=== PATIENT | female | born 1990 | race Two or more races ===

== ENCOUNTER 2018-11-09 18:00 | Observation (INO) | payer SELFPAY ==
[~2018-11-09] VITALS: Ht 165.1 cm; Wt 80.0 kg
[2018-11-09] MEDS ORDERED: ACETAMINOPHEN WITH CODEINE 300/30MG TABLET PO NR (22:15)
[2018-11-09 22:26] VITALS: BP 115/60
[2018-11-09] MEDS: LACTATED RINGERS 1,000 ML IV SCH ×2 (22:39→23:07)
[2018-11-09] MEDS: TERBUTALINE SULFATE 1MG/ML VIAL SUBCUT PRN (22:42)
[2018-11-10] MEDS: TERBUTALINE SULFATE 1MG/ML VIAL SUBCUT PRN (00:10)
[2018-11-10] MEDS ORDERED: FOLI0.4T2 MT (00:13)
== END 2018-11-10 01:15 | disposition home or self-care (01) ==
LOC: ER 18:00 → 8 EST LDRP 21:26 → INTOOBSV 21:26
PROVIDERS: ADMIT Specialist; ATTEND Specialist
DX: O26.893 Other specified pregnancy related conditions, third trimester (principal); R10.2 Pelvic and perineal pain; R10.31 Right lower quadrant pain; Z3A.31 31 weeks gestation of pregnancy
CPT/HCPCS: 96372; 99281; G0378; J3105; 96360; 96361; 99285